=== PATIENT | female | born 1960 | race African-American/Black ===

== ENCOUNTER 2016-06-07 09:43 | Emergency (ER) | payer MEDICARE, MEDICAID ==
[2016-06-07] MEDS ORDERED: ASPIRIN 81 MG TABLET, CHEWABLE PO ONE (10:06)
[2016-06-07 11:21] LABS: ABSOLUTE BASOPHILS # (AUTO) 0.1 10^3/uL (0.0-0.2); ABSOLUTE EOSINOPHILS # (AUTO) 0.2 10^3/uL (0.0-0.6); ABSOLUTE LYMPHOCYTES (AUTO) 1.9 10^3/uL (0.5-4.7); ABSOLUTE MONOCYTES (AUTO) 0.4 10^3/uL (0.1-1.4); ABSOLUTE NEUT (AUTO) 4.9 10^3/uL (1.7-8.2); BASOPHILS % (AUTO) 0.8 % (0-2); EOSINOPHILS % (AUTO) 3.1 % (0-6); HEMATOCRIT 38.1 % (36.0-47.0); HEMOGLOBIN 12.8 g/dL (12.0-15.5); HGB HCT DIFFERENCE 0.3; LYMPHOCYTES % (AUTO) 25.4 % (13-45); MEAN CORPUSCULAR HEMOGLOBIN 29.2 pg (27.0-33.4); MEAN CORPUSCULAR HGB CONC 33.6 g/dL (32.0-36.0); MEAN CORPUSCULAR VOLUME 87 fl (80-97); MONOCYTES % (AUTO) 5.2 % (3-13); RED BLOOD COUNT 4.38 10^6/uL (3.72-5.28); RED CELL DISTRIBUTION WIDTH 15.2 % (11.5-14.0); SEGMENTED NEUTROPHILS % (AUTO) 65.5 % (42-78); WHITE BLOOD COUNT 7.4 10^3/uL (4.0-10.5)
[2016-06-07 11:36] LABS: ALANINE AMINOTRANSFERASE 25 U/L (9-52); ALBUMIN 3.9 g/dL (3.5-5.0); ALKALINE PHOSPHATASE 80 U/L (38-126); ANION GAP 13 (5-19); ASPARTATE AMINO TRANSFERASE 21 U/L (14-36); BILIRUBIN,TOTAL 0.4 mg/dL (0.2-1.3); BLOOD UREA NITROGEN 16 mg/dL (7-20); CALCIUM 9.2 mg/dL (8.4-10.2); CARBON DIOXIDE 28 mmol/L (22-30); CHLORIDE 99 mmol/L (98-107); CREATINE KINASE 121 U/L (30-135); CREATININE RESULT 0.69 mg/dL (0.52-1.25); GLUCOSE 175 mg/dL (75-110); POTASSIUM 3.8 mmol/L (3.6-5.0); SODIUM 139.7 mmol/L (137-145); TOTAL PROTEIN 7.4 g/dL (6.3-8.2)
--- NOTE | 2016-06-07 11:45 | ER Document Report ---
ED General - General Chief Complaint: Chest Pain Stated Complaint: CHEST PAIN Mode of Arrival: Ambulatory Information source: Patient Notes: Patient is a 55-year-old -[place] female presents with left upper arm pain has been present intermittently for the past 2 weeks. She states these episodes of arm pain last about 5 seconds and do not radiate to her jaw or to her chest. She states she also has intermittent midsternal chest pain that is nonradiating and nonreproducible. She describes the pain as throbbing. She states she has had pain similar to this and both her arm and chest for the past 3-4 years. She has been here and to see a [employer] inspector for this pain and was told that everything was fine. The last time she saw the [employer] inspector was over a year ago. She states she was at her primary care doctor's office this morning to have her thyroid checked and to restart some of her medications and they sent her over here to be evaluated for chest pain. She has a history of hypertension and diabetes but is only taking 1 antihypertensive medication. She is not currently having chest pain but endorses headache, nausea and lightheadedness. Denies changes in vision, diaphoresis, shortness of breath, vomiting or diarrhea. Cardiac risk factors: Personal history of diabetes and hypertension, family history of CAD/VA, nonsmoker, no alcohol, no IV drug use TRAVEL OUTSIDE OF THE [place] IN LAST 30 DAYS: No - Related Data Allergies/Adverse Reactions: No Known Allergies Allergy (Verified 06/07/16 10:04) Past Medical History - Social History Smoking Status: Unknown if Ever Smoked Chew tobacco use (# tins/day): No Frequency of alcohol use: None Drug Abuse: None Family History: Hypertension Patient has suicidal ideation: No Patient has homicidal ideation: No - Past Medical History Cardiac Medical History: Reports: Hx Hypertension Pulmonary Medical History: Denies: Hx Tuberculosis Neurological Medical History: Reports: Hx Migraine Renal/ Medical History: Denies: Hx Peritoneal Dialysis Musculoskeltal Medical History: Reports Hx Arthritis Psychiatric Medical History: Reports: Hx Depression Traumatic Medical History: Reports: Hx Fractures - L3L4 Past Surgical History: Reports: Hx Section, Hx Cholecystectomy - Immunizations Hx Diphtheria, Pertussis, Tetanus Vaccination: Yes Review of Systems - Review of Systems Constitutional: See HPI EENT: No symptoms reported Cardiovascular: See HPI Respiratory: See HPI Gastrointestinal: No symptoms reported Genitourinary: No symptoms reported Female Genitourinary: No symptoms reported Musculoskeletal: See HPI Skin: No symptoms reported Hematologic/Lymphatic: No symptoms reported Neurological/Psychological: No symptoms reported Physical Exam - Vital signs Vitals: Temp Pulse Resp BP Pulse Ox 97.8 F 75 20 125/75 98 06/07/16 10:05 06/07/16 10:05 06/07/16 10:05 06/07/16 10:05 06/07/16 10:05 Interpretation: Normal - Notes Notes: PHYSICAL EXAM: CONSTITUTIONAL: Alert and oriented, well-appearing and in no acute distress. Speaking in full sentences without difficulty. HENT: Normocephalic, atraumatic. Trachea midline. Uvula midline. Moist mucous membranes. EYES: Pupils equal round and reactive to light, EOM intact. Sclera anicteric, conjunctiva are normal. No entrapment. NECK: supple without lymphadenopathy. ROM intact. HEART: Regular rate and rhythm without murmurs. LUNGS: CTAB and equal. No wheezes, rales or rhonchi. GI: Normactive bowel sounds. Nontender, non-distended. No organomegaly. no CVAT. EXTREMITIES: Normal range of motion, no pitting edema. No cyanosis. Cap Refill < 3 seconds. NEURO: Cranial nerves grossly intact. Normal sensory/motor exams. PSYCH: Normal mood, normal affect. SKIN: Warm and dry. Normal turgor. No rashes or lesions noted. Course - Re-evaluation Re-evalutation: 06/07/16 11:45 Patient seen and examined. No active chest pain. She did receive 324 mg aspirin in triage. Positive cardiac risk factors so will get EKG and check lab work including troponin. Due to chronicity of pain low concern for active cardiac disease at this point. 06/07/16 12:27 Patient continues to remain chest pain free. Review of lab work reveal no abnormalities, initial troponin within normal limits. No acute findings on EKG. I have consulted with the supervisory physician per [facility] guidelines who is in agreement with assessment and plan. At this time, I do not feel this patient is having CAD or cardiac chest pain and is safe for discharge. Provided script for PPI for reflux. Advised to follow-up with PMD and z[employer] inspector. Discharged home in stable condition. - Vital Signs Vital signs: Temp Pulse Resp BP Pulse Ox 97.8 F 75 20 125/75 98 06/07/16 10:05 06/07/16 10:05 06/07/16 11:25 06/07/16 10:05 06/07/16 10:05 06/07/16 12:23 - Laboratory Result Diagrams: 06/07/16 10:25 06/07/16 10:25 Laboratory results interpreted by me: 06/07/16 06/07/16 10:25 10:25 RDW 15.2 H Glucose 175 H 06/07/16 12:25 Troponin within normal limits. - EKG Interpretation by Me EKG shows normal: Sinus rhythm Rate: Normal Rhythm: NSR When compared to previous EKG there are: Other - In comparison to EKG sent from primary care doctor's office, aVR and aVL on their EKG appear to be inverted due to lead placement. Confirmed with Dr. Stern. Discharge - Discharge Clinical Impression: Chronic pain of left upper extremity, Non-cardiac chest pain HTN (hypertension) Qualifiers: Hypertension type: essential hypertension Qualified Code(s): I10 - Essential ( primary) hypertension Condition: Stable Disposition: HOME, SELF-CARE Additional Instructions: CHEST PAIN OF UNCLEAR CAUSE: The exact cause of your chest pain isn't clear. Fortunately, there is no evidence of a dangerous medical condition. Further testing may be required to find the source of the pain. Most often, we find that this pain is coming from the chest wall -- the muscles or rib joints in the chest. But chest pain can come from the lung and lung lining, the esophagus, the heart valves or heart lining, and even the stomach or gallbladder. Rest. Eat lightly until the pain is gone. We may prescribe medicine for pain and inflammation. You should call the physician immediately if the pain radiates to the shoulder, jaw or arms; if you start to run a fever or develop a cough; or if you develop shortness of breath, or other new or alarming symptoms. NORMAL EXAM AND WORKUP: At this time, your examination and workup show no significant abnormality. No significant abnormal physical findings were noted. All laboratory, EKG, and imaging (x-ray, CT scans, ultrasound) studies that were ordered show no significant abnormality. Although your examination and all studies that were ordered showed no significant abnormal finding, there are no examinations and no studies that are 100% accurate. There is always the possibility that some abnormality could exist and not be detected with physical examination or within the limits and capabilities of laboratory and other studies. You should return or follow up as you were instructed on your visit today for further evaluation if your symptoms do not resolve. CHEST WALL PAIN: Your chest pain may be coming from the chest wall. This is often caused by straining the muscles or joints in the chest during physical activity, direct trauma, coughing, or vigorous vomiting. Persons with arthritis are especially prone to this type of pain, due to inflammation of the cartilage joints near the breast bone. Occasionally, no cause can be found. Rest from strenuous physical activity. This kind of chest pain is usually made worse by movement of the chest. Depending on the symptoms, we may prescribe medicine for pain, muscle relaxation, and antiinflammatory effects. If the pain is new, and seems to be due to muscle strain, cold packs can help. Otherwise, apply gentle warmth to the painful area for 15 minutes every hour or two. You should call contact the doctor immediately if things change. Further evaluation is needed if you develop a fever or cough, if the nature of the pain changes, or if you become short of breath. ACID REFLUX DISEASE (GERD): Gastro-Esophageal Reflux Disease (GERD) is caused by stomach acid refluxing back up into the esophagus. The valve at the end of the esophagus may be weak. This is common in persons with a hiatal hernia. GERD symptoms can include indigestion, chest pain, heartburn, or food "sticking." Certain foods, alcohol, and aspirin can make GERD worse. Treatment depends on the severity. Usually, antacids or acid-suppressing medicines are used. When the esophagus is acutely inflamed, the physician will often prescribe membrane-protective drugs such as Carafate. Some patients benefit from medication such as Reglan that tightens the valve at the top of the stomach. Avoid those foods that bring on your symptoms. For many people, these foods are coffee, chocolate, onions, garlic, and carbonated drinks. Don't use alcohol, aspirin, caffeine, or tobacco. Don't eat late at night -- within 4 hours of bedtime. Don't over-eat. If necessary, elevate the head of your bed about 4 inches so that stomach acid will not roll up into your esophagus. Call the doctor if you develop severe chest pain, inability to swallow fluids, fever, or worsening symptoms. ASPIRIN: Aspirin has been shown to have a beneficial effect on blood circulation by reducing the clotting effect of platelets in the blood. These beneficial effects can be achieved by taking just a single baby (81 mg) aspirin a day. It is recommended that any person over the age of forty take a single baby aspirin every day for heart and brain circulation, unless you are allergic to aspirin or have some significant bleeding disorder. It is strongly recommended that people who have proven cardiac or blood circulation disturbances should take a baby aspirin every day. ANTACID THERAPY: You have been instructed to start antacid therapy. Antacids directly neutralize stomach acid. This is useful for acid irritation of the esophagus, gastritis, and ulcers. You should take two tablespoons of antacid one hour after each meal and three hours after each meal. If you are not eating, take the antacid every two hours. If you are using a concentrate (such as Maalox TC), use only one tablespoon. Many antacids affect the bowels. The most common problem is diarrhea. In this case, a pure aluminum hydroxide antacid (such as AlternaGel) can be substituted for some or all doses. If the problem is constipation, add a teaspoon of Milk of Magnesia to each dose. Call the doctor if you experience continued diarrhea or constipation, or if you develop lightheadedness, bloody stool or vomitus, severe abdominal pain, or black stool. PRILOSEC (ACID PUMP INHIBITOR): Prilosec (omeprazole) is an acid-pump inhibitor. It blocks the secretion of hydrogen ions in the acid-producing cells of the stomach. Prilosec keeps your stomach from making acid. Take all medication as prescribed, even after the pain is gone. Regular antacids may be added as needed if you have symptoms while taking this medicine. There are usually no side effects from this medication. Contact your doctor if there is fever, rash, yellow skin color, increasing abdominal pain, weakness, or unusual bruising. Return at once if you develop lightheadedness, black or bloody stool, or bloody vomitus. FOLLOW-UP CARE: If you have been referred to a physician for follow-up care, call the physician s office for an appointment as you were instructed or within the next two days. If you experience worsening or a significant change in your symptoms, notify the physician immediately or return to the Emergency Department at any time for re-evaluation. Prescriptions: Omeprazole 20 mg PO DAILY #30 tablet.dr Referrals: WERNER DRAPER MD [Primary Care Provider] - Follow up in 3-5 days (To evaluate for thyroid and diabetes) PATRIC STOUT MD [ACTIVE STAFF] - Follow up in 1 week (call to schedule yearly follow-up appointment)
[2016-06-07 11:46] LABS: CREATINE KINASE MB 2.36 ng/mL (<4.55)
[2016-06-07 11:47] LABS: TROPONIN I < 0.012 ng/mL
--- NOTE | 2016-06-07 12:18 | ER Document Report ---
Doctor's Note Notes: 06/07/16 12:16 Consulted by [facility] regarding this patient. I then evaluated the patient. She says that she's been having this chest pain into her arm for a couple of years. She went to her doctor today for another reason, lab tests for her thyroid, etc., and they did an EKG in his office. The EKG does not show any acute changes. In fact, I'm pretty sure that leads aVR and aVL are switched on that office EKG. The morphology of the 2 leads are just the opposite on our EKG here. Our EKG does not show any changes that concern me for cardiac disease. Her cardiac labs are all negative. I believe we can send the patient home for follow-up with her doctor. Salvador Stern M.D.
[2016-06-07 12:34] VITALS: BP 125/77
--- NOTE | 2016-06-07 18:15 | EKG REPORT ---
SEVERITY:- ABNORMAL ECG - SINUS RHYTHM IVETH, CONSIDER BIATRIAL ABNORMALITIES LEFT VENTRICULAR HYPERTROPHY BORDERLINE T ABNORMALITIES, INFERIOR LEADS BORDERLINE PROLONGED QT INTERVAL : Confirmed by: Mahamed Cheema MD 07-Jun-2016 18:14:46
== END 2016-06-07 12:38 | disposition home or self-care (01) ==
LOC: ER 09:43
DX: R07.89 Other chest pain (principal); M79.622 Pain in left upper arm; G89.29 Other chronic pain; I10 Essential (primary) hypertension; E11.9 Type 2 diabetes mellitus without complications; R51 Headache; R11.0 Nausea; R42 Dizziness and giddiness; Z79.899 Other long term (current) drug therapy; Z82.49 Family history of ischemic heart disease and other diseases of the circulatory system
CPT/HCPCS: 36415; 71010; 80053; 82550; 82553; 84484; 85025; 93005; 93010; 99285

== ENCOUNTER 2016-11-30 08:56 | Outpatient (CLI) | payer MEDICARE, MEDICAID ==
[~2016-11-30 08:56] MED LIST: FERRIC CARBOXYMALTOSE 750 MG in NORMAL SALINE 250 ML IV PRN; NORMAL SALINE 250 ML IV PRN
[2016-11-30 10:13] VITALS: BP 146/70
== END 2016-11-30 11:49 | disposition home or self-care (01) ==
LOC: II 08:56 → 5TH 08:58 → II 11:49
PROVIDERS: ATTEND Internal Medicine
PROC: 3E033GC Introduction of Other Therapeutic Substance into Peripheral Vein, Percutaneous Approach (ICD-10-PCS; principal; 2016-11-30)
DX: D50.8 Other iron deficiency anemias (principal); K90.9 Intestinal malabsorption, unspecified
CPT/HCPCS: 96365; J7050; J1439

== ENCOUNTER 2016-12-07 08:54 | Outpatient (CLI) | payer MEDICARE, MEDICAID ==
[2016-12-07 10:20] VITALS: BP 116/77
== END 2016-12-07 10:34 | disposition home or self-care (01) ==
LOC: II 08:54 → 5TH 08:57 → II 10:34
PROVIDERS: ATTEND Internal Medicine
PROC: 3E033GC Introduction of Other Therapeutic Substance into Peripheral Vein, Percutaneous Approach (ICD-10-PCS; principal; 2016-12-07)
DX: D50.8 Other iron deficiency anemias (principal); K90.9 Intestinal malabsorption, unspecified
CPT/HCPCS: 96367; J7050; J1439; 96365

== ENCOUNTER 2017-08-03 11:56 | Emergency (ER) | payer MEDICARE, MEDICAID ==
--- NOTE | 2017-08-03 12:50 | RADIOLOGY REPORT (SQ) ---
EXAM DESCRIPTION: L SPINE WHOLE COMPLETED DATE/TIME: 08/03/2017 12:37 pm REASON FOR STUDY: FALL, PAIN COMPARISON: None. NUMBER OF VIEWS: Five views including obliques. TECHNIQUE: AP, lateral, oblique, and sacral radiographic images acquired of the lumbar spine. LIMITATIONS: None. FINDINGS: MINERALIZATION: Normal. SEGMENTATION: Normal. No transitional anatomy. ALIGNMENT: Mild levoscoliosis centered at L2. VERTEBRAE: Maintained height. No fracture or worrisome bone lesion. DISCS: Disc spaces are well maintained. There are some small marginal osteophytes scattered through the lumbar spine. POSTERIOR ELEMENTS: Mild hypertrophic facet changes from L2-S1. HARDWARE: None in the spine. PARASPINAL SOFT TISSUES: Normal. PELVIS: There is mild sclerosis of the inferior left sacroiliac joint. OTHER: No other significant finding. IMPRESSION: 1. Mild scoliosis with mild spondylosis and facet arthropathy. 2. Left sacroiliitis. TECHNICAL DOCUMENTATION: JOB ID: [id number] [employer]- All Rights Reserved Reading location - IP/workstation name: [email or web address]
--- NOTE | 2017-08-03 12:51 | RADIOLOGY REPORT (SQ) ---
EXAM DESCRIPTION: SACRUM AND COCCYX COMPLETED DATE/TIME: 08/03/2017 12:38 pm REASON FOR STUDY: FALL, PAIN COMPARISON: None. NUMBER OF VIEWS: Three views. TECHNIQUE: AP, lateral, and tilt views of the sacrum and coccyx. LIMITATIONS: None. FINDINGS: MINERALIZATION: Normal. BONES: No acute fracture or dislocation. No worrisome bone lesions. SOFT TISSUES: No soft tissue swelling. No foreign body. OTHER: Mild left sacroiliitis suggested. IMPRESSION: Left sacroiliitis with no acute abnormality of the sacrum and coccyx. TECHNICAL DOCUMENTATION: JOB ID: [id number] [employer]- All Rights Reserved Reading location - IP/workstation name: [email or web address]
[2017-08-03] MEDS ORDERED: KETOROLAC TROMETHAMINE INJ/PF 30 MG/1 ML SDV IM ONE (13:08)
--- NOTE | 2017-08-03 13:14 | ER Document Report ---
ED Neck/Back Problem - General Chief Complaint: Back Injury Stated Complaint: FALL/TAILBONE PAIN Time Seen by Provider: 08/03/17 12:06 Mode of Arrival: Ambulatory Information source: Patient TRAVEL OUTSIDE OF THE [place] IN LAST 30 DAYS: No - HPI Patient complains to provider of: Pain, Injury, Lower back Notes: Patient is here with complaints of low back pain. She states that she was sitting on her wheeled walker when it rolled down the driveway and collapsed causing her to fall onto her buttocks and then hit her head. She is on no blood thinning medications. She denies any loss of consciousness. She does complain of a mild headache. She denies any blurred or loss vision. She denies any numbness, tingling, weakness. She denies any nausea, vomiting, diarrhea. She denies any posterior neck pain. She is complaining of pain in her lower back and tailbone area. She denies any other injuries. She denies any bowel or bladder dysfunction. No fever. No other complaints. - Related Data Allergies/Adverse Reactions: No Known Allergies Allergy (Verified 06/07/16 10:04) Past Medical History - Social History Smoking Status: Never Smoker Chew tobacco use (# tins/day): No Frequency of alcohol use: None Drug Abuse: None Family History: Hypertension Patient has suicidal ideation: No Patient has homicidal ideation: No - Past Medical History Cardiac Medical History: Reports: Hx Hypertension Pulmonary Medical History: Denies: Hx Tuberculosis Neurological Medical History: Reports: Hx Migraine Renal/ Medical History: Denies: Hx Peritoneal Dialysis Musculoskeltal Medical History: Reports Hx Arthritis Psychiatric Medical History: Reports: Hx Depression Traumatic Medical History: Reports: Hx Fractures - L3L4 Past Surgical History: Reports: Hx Section, Hx Cholecystectomy - Immunizations Hx Diphtheria, Pertussis, Tetanus Vaccination: Yes Review of Systems - Review of Systems -: Yes All other systems reviewed and negative Physical Exam - Vital signs Vitals: Temp Pulse Resp BP Pulse Ox 98.7 F 94 20 121/86 H 97 08/03/17 12:02 08/03/17 12:02 08/03/17 12:02 08/03/17 12:02 08/03/17 12:02 - Notes Notes: GENERAL: alert, cooperative, nontoxic, no distress. HEAD: normocephalic, atraumatic EYES: conjunctiva pink without discharge, no external redness or swelling. PERRL , EOM'S INTACT EARS: no external swelling, no external redness. No hemotympanum EM NOSE: atraumatic, no external swelling. No bleeding MOUTH/THROAT: mucous membranes moist and pink, posterior pharynx without erythema, swelling, exudate. No trismus or drooling. NECK: soft, supple, full range of motion, no meningismus. No midline tenderness step-offs or crepitus to palpation of the cervical spine. CHEST: no distress, lungs clear and equal throughout. No wheezing, rales, rhonchi. CARDIAC: regular rate and rhythm, no murmur, normal capillary refill, normal pulses. No peripheral edema noted. ABDOMEN: Soft, nontender. No ecchymosis. BACK: no CVA tenderness. Tenderness to palpation of the lumbar spine as well as the sacrum. No step-offs or crepitus. Slightly limited range of motion of the lower back secondary to pain. EXTREMITIES: full range of motion of all extremities. No redness, no swelling. NEURO: alert and oriented x 3, no focal deficits, full range of motion of all extremities. Cranial nerves II through XII are grossly intact. Reflexes are normal bilaterally. Normal sensation bilaterally. Normal strength bilaterally. No saddle anesthesia PYSCH: appropriate mood, affect. Patient is cooperative. SKIN: pink, warm, dry, no rash. Course - Re-evaluation Re-evalutation: 08/03/17 13:11 Patient is nontoxic appearing with stable vitals. The patient states that she was sitting on her wheeled walker when it rolled down the driveway and she fell onto her buttocks and hit her head. She is on no blood thinners. She denies loss of consciousness. She does complain of a mild headache. She has no other concussive type symptoms. She has a completely normal neurological exam at this time. She has no midline tenderness to her cervical spine. This point do not believe the patient requires a head CT. We discussed the risks and benefits of head CT, the patient states she has had multiple CTs in the past and she would prefer to not have the radiation exposure at this time. X-rays of the lumbar spine as well as sacrum and coccyx show sacroiliitis on the left with no acute findings. Patient has no sign of cauda equina, epidural abscess/ bleed, discitis, osteomyelitis, AAA, pyelonephritis. Remainder of her exam is unremarkable. The patient states she has tramadol that she can take at home for pain. She will be given a shot of Toradol here in emergency department will be prescribed Naprosyn to take as needed for aches and pains. She can continue taking her Ultram as needed. Follow-up if she has not better in 1 week , sooner for worsening pain, fever, numbness, tingling, weakness, bowel or bladder dysfunction, persistent vomiting, severe headache, or for any further concerns. The patient is noted to have elevated blood pressure during today's emergency department visit. The patient was informed of this finding. The patient was instructed that this may be related to pre-hypertension and requires further evaluation with a primary care provider. The patient has no hypertensive symptoms at this time. The patient's emergency department workup and current diagnosis were explained to the patient and or family. Follow-up instructions were provided. Medications if prescribed were discussed. Instructions for when to return to the emergency department including specific worrisome symptoms were discussed with the patient and/or family. - Vital Signs Vital signs: Temp Pulse Resp BP Pulse Ox 98.7 F 94 20 121/86 H 97 08/03/17 12:02 08/03/17 12:02 08/03/17 12:02 08/03/17 12:08/03/17 12:02 - Diagnostic Test Radiology reviewed: Image reviewed, Reports reviewed - X-rays of the lumbar spine as well as sacrum and coccyx show no acute fractures with left-sided sacroiliitis. Discharge - Discharge Clinical Impression: Lumbar strain Qualifiers: Encounter type: initial encounter Qualified Code(s): S39.012A - Strain of muscle, fascia and tendon of lower back, initial encounter Minor head injury Qualifiers: Encounter type: initial encounter Qualified Code(s): S09.90XA - Unspecified injury of head, initial encounter Condition: Stable Disposition: HOME, SELF-CARE Instructions: Low Back Pain ([facility]), Head Injury Precautions ([facility]) Additional Instructions: Take medications as prescribed. You may also take your tramadol as needed for pain. Follow-up with your doctor if not better in 1 week, follow-up sooner for worsening pain, fever, severe headache, blurred or loss vision, numbness, tingling, weakness, slurred speech, persistent vomiting, difficulty controlling her bowels or bladder, or for any further concerns. Your blood pressure was elevated during today's visit. Have this rechecked with your doctor. Prescriptions: Naproxen [Naprosyn] 500 mg PO BID #20 tablet Forms: Elevated Blood Pressure Referrals: WERNER DRAPER MD [Primary Care Provider] - Follow up as needed
[2017-08-03 13:24] VITALS: BP 115/83
[2017-08-03] MEDS ORDERED: LIDOCAINE 5% (700 MG) TRANSDERMAL ADH..PATCH TP ONE (13:31)
== END 2017-08-03 13:35 | disposition home or self-care (01) ==
LOC: ER 11:56
DX: S39.012A Strain of muscle, fascia and tendon of lower back, initial encounter (principal); S09.90XA Unspecified injury of head, initial encounter; R51 Headache; I10 Essential (primary) hypertension; W17.89XA Other fall from one level to another, initial encounter
CPT/HCPCS: 99283; 72220; 72110; J1885

== ENCOUNTER 2017-11-08 14:15 | Emergency (ER) | payer MEDICARE, MEDICAID ==
[2017-11-08] MEDS ORDERED: RINGERS SOLUTION,LACTATED 1,000 ML IV PRN (14:58)
[2017-11-08] MEDS ORDERED: KETOROLAC TROMETHAMINE INJ/PF 30 MG/1 ML SDV IV ONE (14:58)
[2017-11-08] MEDS ORDERED: PROCHLORPERAZINE EDISYLATE INJ 10 MG/2 ML VIAL IM ONE (14:58)
[2017-11-08] MEDS ORDERED: DIPHENHYDRAMINE HCL 50 MG/ML VIAL IV ONE (14:58)
--- NOTE | 2017-11-08 15:33 | ER Document Report ---
ED Medical Screen (RME) - General Chief Complaint: Headache Stated Complaint: NUMBNESS AND COLDNESS IN HANDS Time Seen by Provider: 11/08/17 14:46 Mode of Arrival: Ambulatory Information source: Patient TRAVEL OUTSIDE OF THE [place] IN LAST 30 DAYS: No - HPI Notes: 11/08/17 15:28 57-year-old female with a medical history of headaches, type 2 diabetes, hypertension, hyperlipidemia presents with complaints of a headache with numbness in bilateral hands that started today, has been episodic over the last several months. Denies any fevers or chills. States headache is left frontal, denies any photophobia or phonophobia. Pain is 7 out of 10, sharp, denies any nausea vomiting, blurred vision, double vision, loss of vision, neck stiffness, trismus, chest pain or shortness of breath but does state she has intermittent dizziness. Patient states she had this prior, needed a blood transfusion however she did this outpatient. Denies any new medications, travel or new foods. Has been taking her Metformin, Lipitor gabapentin and tramadol as directed has been on these medications for several years. Denies any trauma to head, change in level of consciousness or neuro changes. Patient states this headache is not the worst headache of her life and she has had worse headaches. I have greeted and performed a rapid initial assessment of this patient. A comprehensive ED assessment and evaluation of the patient, analysis of test results and completion of medical decision making process will be conducted by an additional ED providers. - Related Data Allergies/Adverse Reactions: No Known Allergies Allergy (Verified 11/08/17 14:16) Past Medical History - Past Medical History Cardiac Medical History: Reports: Hx Hypertension Pulmonary Medical History: Denies: Hx Tuberculosis Neurological Medical History: Reports: Hx Migraine Renal/ Medical History: Denies: Hx Peritoneal Dialysis Musculoskeltal Medical History: Reports Hx Arthritis Psychiatric Medical History: Reports: Hx Depression Traumatic Medical History: Reports: Hx Fractures - L3L4 Past Surgical History: Reports: Hx Section, Hx Cholecystectomy - Immunizations Hx Diphtheria, Pertussis, Tetanus Vaccination: Yes Physical Exam - Vital signs Vitals: Temp Pulse Resp BP Pulse Ox 98.9 F 67 16 135/80 H 97 11/08/17 14:19 11/08/17 14:19 11/08/17 14:19 11/08/17 14:19 11/08/17 14:19 - Respiratory Respiratory status: No respiratory distress Chest status: Nontender Breath sounds: Normal Chest palpation: Normal - discharge any patient - Cardiovascular Rhythm: Regular Heart sounds: Normal auscultation Murmur: Yes Normal capillary refill: Yes - Neurological Neuro grossly intact: Yes Cognition: Normal Orientation: AAOx4 Sharon Coma Scale Verbal: Oriented Sharon Coma Scale Motor: Obeys Commands Speech: Normal Motor strength normal: LUE, RUE, LLE, RLE Course - Vital Signs Vital signs: Temp Pulse Resp BP Pulse Ox 98.9 F 67 16 135/80 H 97 11/08/17 14:19 11/08/17 14:19 11/08/17 14:19 11/08/17 14:19 11/08/17 14:19 Doctor's Discharge - Discharge Referrals: WERNER DRAPER MD [Primary Care Provider] - Follow up as needed
--- NOTE | 2017-11-08 15:37 | RADIOLOGY REPORT (SQ) ---
EXAM DESCRIPTION: CHEST SINGLE VIEW COMPLETED DATE/TIME: 11/08/2017 3:17 pm REASON FOR STUDY: dizziness with LOYD COMPARISON: 06/07/2016 EXAM PARAMETERS: NUMBER OF VIEWS: One view. TECHNIQUE: Single frontal radiographic view of the chest acquired. RADIATION DOSE: NA LIMITATIONS: None. FINDINGS: LUNGS AND PLEURA: No opacities, masses or pneumothorax. No pleural effusion. MEDIASTINUM AND HILAR STRUCTURES: No masses. Contour normal. HEART AND VASCULAR STRUCTURES: Heart normal in size. Normal vasculature. BONES: No acute findings. HARDWARE: None in the chest. OTHER: No other significant finding. IMPRESSION: NO ACUTE RADIOGRAPHIC FINDING IN THE CHEST. TECHNICAL DOCUMENTATION: JOB ID: [id number] [employer]- All Rights Reserved Reading location - IP/workstation name: [email or web address]
[2017-11-08 16:00] LABS: ABSOLUTE EOSINOPHILS # (AUTO) 0.2 10^3/uL (0.0-0.6); ABSOLUTE LYMPHOCYTES (AUTO) 1.8 10^3/uL (0.5-4.7); ABSOLUTE MONOCYTES (AUTO) 0.4 10^3/uL (0.1-1.4); ABSOLUTE NEUT (AUTO) 5.4 10^3/uL (1.7-8.2); BASOPHILS % (AUTO) 0.6 % (0-2); EOSINOPHILS % (AUTO) 2.4 % (0-6); HEMATOCRIT 40.2 % (36.0-47.0); HEMOGLOBIN 13.5 g/dL (12.0-15.5); LYMPHOCYTES % (AUTO) 23.2 % (13-45); MEAN CORPUSCULAR HGB CONC 33.6 g/dL (32.0-36.0); MEAN CORPUSCULAR VOLUME 89 fl (80-97); MONOCYTES % (AUTO) 5.5 % (3-13); PLATELET COUNT 359 10^3/uL (150-450); RED BLOOD COUNT 4.51 10^6/uL (3.72-5.28); SEGMENTED NEUTROPHILS % (AUTO) 68.3 % (42-78); TOTAL CELLS COUNTED % (AUTO) 100 %; WHITE BLOOD COUNT 7.9 10^3/uL (4.0-10.5)
[2017-11-08 16:21] LABS: ALANINE AMINOTRANSFERASE 24 U/L (9-52); ALBUMIN 3.8 g/dL (3.5-5.0); ALKALINE PHOSPHATASE 65 U/L (38-126); ANION GAP 12 (5-19); ASPARTATE AMINO TRANSFERASE 24 U/L (14-36); BILIRUBIN,DIRECT 0.3 mg/dL (0.0-0.4); BILIRUBIN,TOTAL 0.4 mg/dL (0.2-1.3); BLOOD UREA NITROGEN 13 mg/dL (7-20); C-REACTIVE PROTEIN 30.1 mg/L (<10.0); CALCIUM 9.3 mg/dL (8.4-10.2); CARBON DIOXIDE 28 mmol/L (22-30); CHLORIDE 102 mmol/L (98-107); CREATINE KINASE 158 U/L (30-135); GLUCOSE 130 mg/dL (75-110); POTASSIUM 3.9 mmol/L (3.6-5.0); SODIUM 142.3 mmol/L (137-145); TOTAL PROTEIN 7.5 g/dL (6.3-8.2)
[2017-11-08 16:30] LABS: CREATINE KINASE MB 1.82 ng/mL (<4.55)
[2017-11-08 16:31] LABS: TROPONIN I < 0.012 ng/mL
[2017-11-08 19:24] LABS: APPEARANCE,URINE CLEAR; BILIRUBIN,URINE NEGATIVE (NEGATIVE); COLOR,URINE YELLOW; GLUCOSE, URINE NEGATIVE (NEGATIVE); KETONES,URINE NEGATIVE (NEGATIVE); LEUKOCYTE ESTERASE,URINE NEGATIVE (NEGATIVE); NITRITE,URINE NEGATIVE (NEGATIVE); PROTEIN,URINE NEGATIVE (NEGATIVE); URINE SPECIFIC GRAVITY 1.015; UROBILINOGEN,URINE NEGATIVE mg/dL (<2.0)
--- NOTE | 2017-11-08 19:26 | ER Document Report ---
ED General - General Chief Complaint: Headache Stated Complaint: NUMBNESS AND COLDNESS IN HANDS Time Seen by Provider: 11/08/17 14:46 Mode of Arrival: Ambulatory Notes: This is a 57-year-old female to emergency department chief complaint of my hands are cold. States that she began to have some tingling to her hands and face. States that this is happened before. Denies any fever. Did feel chills. No sweats. No chest pain, shortness of breath, blurred vision, headache or other issues at this time. Patient does state she has chronic pain but that nothing is worse than usual. TRAVEL OUTSIDE OF THE [place] IN LAST 30 DAYS: No - HPI Onset: Just prior to arrival Onset/Duration: Gone Quality of pain: No pain Severity: Mild Pain Level: 0 Associated symptoms: Weakness, Other - Tingling of her hands Exacerbated by: Denies - Related Data Allergies/Adverse Reactions: No Known Allergies Allergy (Verified 11/08/17 14:16) Past Medical History - General Information source: Patient - Social History Smoking Status: Never Smoker Cigarette use (# per day): No Frequency of alcohol use: None Drug Abuse: None Lives with: Family Family History: Hypertension Patient has suicidal ideation: No Patient has homicidal ideation: No - Past Medical History Cardiac Medical History: Reports: Hx Hypertension Pulmonary Medical History: Denies: Hx Tuberculosis Neurological Medical History: Reports: Hx Migraine Renal/ Medical History: Denies: Hx Peritoneal Dialysis Musculoskeletal Medical History: Reports Hx Arthritis Psychiatric Medical History: Reports: Hx Depression Traumatic Medical History: Reports: Hx Fractures - L3L4 Past Surgical History: Reports: Hx Section, Hx Cholecystectomy - Immunizations Hx Diphtheria, Pertussis, Tetanus Vaccination: Yes Review of Systems - Review of Systems Constitutional: denies: Fever, Malaise, Weakness EENT: denies: Blurred vision, Difficulty swallowing, Mouth pain Cardiovascular: denies: Chest pain, Dyspnea, Edema Respiratory: denies: Cough, Hurts to breathe, Short of breath, Wheezing Gastrointestinal: denies: Abdominal pain, Diarrhea, Nausea, Vomiting Genitourinary: denies: Burning, Dysuria, Discharge Musculoskeletal: denies: Back pain, Muscle pain, Leg swelling Skin: denies: Dryness, Lesions, Lumps, Rash Hematologic/Lymphatic: denies: Blood clots, Easy bleeding, Easy bruising Neurological/Psychological: Weakness, Numbness, Tingling. denies: Confusion Physical Exam - Vital signs Vitals: Temp Pulse Resp BP Pulse Ox 98.9 F 67 16 135/80 H 97 11/08/17 14:19 11/08/17 14:19 11/08/17 14:19 11/08/17 14:19 11/08/17 14:19 Interpretation: Normal - General General appearance: Appears well, Alert - HEENT Head: Normocephalic, Atraumatic Eyes: Normal Pupils: PERRL - Respiratory Respiratory status: No respiratory distress Chest status: Nontender Breath sounds: Normal Chest palpation: Normal - Cardiovascular Rhythm: Regular Heart sounds: Normal auscultation Murmur: No - Abdominal Inspection: Normal Distension: No distension Bowel sounds: Normal Tenderness: Nontender Organomegaly: No organomegaly - Back Back: Normal, Nontender - Extremities General upper extremity: Normal inspection, Nontender, Normal color, Normal ROM , Normal temperature General lower extremity: Normal inspection, Nontender, Normal color, Normal ROM , Normal temperature, Normal weight bearing. 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 Labs are completely normal. EKG unchanged from prior. Chest x-ray unremarkable. At this time felt very comfortable discharging her. 11/08/17 19:25 Laboratory 11/08/17 11/08/17 11/08/17 15:44 15:44 15:44 WBC 7.9 RBC 4.51 Hgb 13.5 Hct 40.2 MCV 89 MCH 30.0 MCHC 33.6 RDW 14.0 Plt Count 359 Seg Neutrophils % 68.3 Lymphocytes % 23.2 Monocytes % 5.5 Eosinophils % 2.4 Basophils % 0.6 Absolute Neutrophils 5.4 Absolute Lymphocytes 1.8 Absolute Monocytes 0.4 Absolute Eosinophils 0.2 Absolute Basophils 0.0 Sodium 142.3 Potassium 3.9 Chloride 102 Carbon Dioxide 28 Anion Gap 12 BUN 13 Creatinine 0.68 Est GFR ( Amer) > 60 Est GFR (Non-Af Amer) > 60 Glucose 130 H Calcium 9.3 Total Bilirubin 0.4 Direct Bilirubin 0.3 Neonat Total Bilirubin Not Reportable Neonat Direct Bilirubin Not Reportable Neonat Indirect Bili Not Reportable AST 24 ALT 24 Alkaline Phosphatase 65 Creatine Kinase 158 H CK-MB (CK-2) 1.82 Troponin I < 0.012 C-Reactive Protein 30.1 H Total Protein 7.5 Albumin 3.8 Urine Color Urine Appearance Urine pH Ur Specific Gravette Urine Protein Urine Glucose (UA) Urine Ketones Urine Blood Urine Nitrite Urine Bilirubin Urine Urobilinogen Ur Leukocyte Esterase Urine WBC (Auto) Urine RBC (Auto) U Hyaline Cast (Auto) Squamous Epi Cells Auto Urine Mucus (Auto) Urine Ascorbic Acid 11/08/17 18:50 WBC RBC Hgb Hct MCV MCH MCHC RDW Plt Count Seg Neutrophils % Lymphocytes % Monocytes % Eosinophils % Basophils % Absolute Neutrophils Absolute Lymphocytes Absolute Monocytes Absolute Eosinophils Absolute Basophils Sodium Potassium Chloride Carbon Dioxide Anion Gap BUN Creatinine Est GFR ( Amer) Est GFR (Non-Af Amer) Glucose Calcium Total Bilirubin Direct Bilirubin Neonat Total Bilirubin Neonat Direct Bilirubin Neonat Indirect Bili AST ALT Alkaline Phosphatase Creatine Kinase CK-MB (CK-2) Troponin I C-Reactive Protein Total Protein Albumin Urine Color YELLOW Urine Appearance CLEAR Urine pH 5.0 Ur Specific Gravette 1.015 Urine Protein NEGATIVE Urine Glucose (UA) NEGATIVE Urine Ketones NEGATIVE Urine Blood NEGATIVE Urine Nitrite NEGATIVE Urine Bilirubin NEGATIVE Urine Urobilinogen NEGATIVE Ur Leukocyte Esterase NEGATIVE Urine WBC (Auto) 1 Urine RBC (Auto) 0 U Hyaline Cast (Auto) 3 Squamous Epi Cells Auto <1 Urine Mucus (Auto) RARE Urine Ascorbic Acid NEGATIVE - Vital Signs Vital signs: Temp Pulse Resp BP Pulse Ox 98.9 F 67 16 135/80 H 97 11/08/17 14:19 11/08/17 14:19 11/08/17 14:19 11/08/17 14:19 11/08/17 14:19 - Laboratory Result Diagrams: 11/08/17 15:44 11/08/17 15:44 Laboratory results interpreted by me: 11/08/17 15:44 Glucose 130 H Creatine Kinase 158 H C-Reactive Protein 30.1 H - EKG Interpretation by Me EKG shows normal: Sinus rhythm, [place], Intervals, QRS Complexes, ST-T Waves Rhythm: PVC's When compared to previous EKG there are: No significant change Discharge - Discharge Clinical Impression: Paresthesias/numbness Condition: Good Disposition: HOME, SELF-CARE Instructions: Numbness or Paresthesia ([facility]) Additional Instructions: Please follow-up with your regular doctor. If symptoms return please get a repeat evaluation done. Today everything looks fairly unremarkable. Referrals: WERNER DRAPER MD [Primary Care Provider] - Follow up as needed
[2017-11-08 19:38] VITALS: BP 119/85
--- NOTE | 2017-11-08 21:21 | EKG REPORT ---
SEVERITY:- ABNORMAL ECG - SINUS RHYTHM VENTRICULAR TRIGEMINY PROBABLE LEFT ATRIAL ABNORMALITY LEFT VENTRICULAR HYPERTROPHY BORDERLINE T ABNORMALITIES, INFERIOR LEADS : Confirmed by: Nataliya Martel 08-Nov-2017 21:20:36
== END 2017-11-08 19:38 | disposition home or self-care (01) ==
LOC: ER 14:15
DX: R20.0 Anesthesia of skin (principal); R20.2 Paresthesia of skin; R53.1 Weakness; I49.3 Ventricular premature depolarization; G89.29 Other chronic pain; I10 Essential (primary) hypertension
CPT/HCPCS: 93005; 99284; 96372; 96375; 96365; 96366; 36415; 82553; 82550; 85025; 86140; 80053; 81001; 84484; 71045; 93010; J1200; J1885; J0780; J7120

== ENCOUNTER 2018-01-10 09:55 | Emergency (ER) | payer OTHER, MEDICARE, MEDICAID ==
[2018-01-10] MEDS ORDERED: DEXAMETHASONE SOD PHOS INJ 10 MG/1 ML VIAL IM ONE (11:30)
[2018-01-10] MEDS ORDERED: KETOROLAC TROMETHAMINE INJ/PF 30 MG/1 ML SDV IM ONE (11:30)
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
[2018-01-10 11:46] VITALS: BP 104/80
== END 2018-01-10 12:00 | disposition home or self-care (01) ==
LOC: ER 09:55
DX: M25.512 Pain in left shoulder (principal); V49.40XA Driver injured in collision with unspecified motor vehicles in traffic accident, initial encounter; M54.9 Dorsalgia, unspecified; M54.2 Cervicalgia; I10 Essential (primary) hypertension; E11.9 Type 2 diabetes mellitus without complications; Z87.81 Personal history of (healed) traumatic fracture
CPT/HCPCS: 99283; 96372; J1885; J1100

== ENCOUNTER 2018-10-10 18:47 | Emergency (ER) | payer MEDICARE, MEDICAID ==
[2018-10-10 19:06] VITALS: BP 150/86
--- NOTE | 2018-10-10 19:23 | ER Document Report ---
ED Medical Screen (RME) - General Chief Complaint: Vomiting/Diarrhea Stated Complaint: DIARRHEA Time Seen by Provider: 10/10/18 18:59 Primary Care Provider: WERNER DRAPER MD [Primary Care Provider] - Follow up as needed Mode of Arrival: Ambulatory Information source: Patient TRAVEL OUTSIDE OF THE [place] 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 Denies any fevers or chills. Worse with time, nothing makes better. Denies any melena, black tarry stools. Has not tried any [id number] medications. Denies any chest pain, shortness of breath, lightheadedness, dizziness, blurred vision double vision loss of vision, bowel or bladder dysfunction, saddle anesthesia, no numbness or tingling bilateral lower extremities equally ROS: Other than noted above, the 12 point review of systems was reviewed with the patient and were negative, all pertinent findings are included in the HPI. PHYSICAL EXAMINATION: Vital signs reviewed. GENERAL: Well-appearing, well-nourished and in no acute distress. HEAD: Atraumatic, normocephalic. NECK: Normal range of motion CV: Heart regular rate and rhythm LUNGS: No respiratory distress ABD: LUQ abd pain on palpation, no cva tenderness bilaterally Musculoskeletal: Normal range of motion NEUROLOGICAL: Normal speech PSYCH: Normal mood, normal affect. MDM: Patient seen and examined for rapid initial assessment. Vital signs reviewed. A comprehensive ED assessment and evaluation of the patient, analysis of test results and completion of the medical decision making process will be conducted by additional ED providers. *Note is created using voice recognition software and may contain spelling, syntax or grammatical errors. - Related Data Allergies/Adverse Reactions: No Known Allergies Allergy (Verified 10/10/18 18:47) Past Medical History - Past Medical History Cardiac Medical History: Reports: Hx Hypertension Pulmonary Medical History: Denies: Hx Tuberculosis Neurological Medical History: Reports: Hx Migraine Endocrine Medical History: Reports: Hx Diabetes Mellitus Type 2 Renal/ Medical History: Denies: Hx Peritoneal Dialysis Musculoskeltal Medical History: Reports Hx Arthritis, Reports Hx Musculoskeletal Deformity, Reports Hx Musculoskeletal Trauma Psychiatric Medical History: Reports: Hx Depression Traumatic Medical History: Reports: Hx Fractures - L3L4 Past Surgical History: Reports: Hx Section, Hx Cholecystectomy - Immunizations Immunizations up to date: Yes Hx Diphtheria, Pertussis, Tetanus Vaccination: Yes Physical Exam - Vital signs Vitals: Temp Pulse Resp BP Pulse Ox 99.1 F 83 20 150/86 H 97 10/10/18 19:05 10/10/18 19:05 10/10/18 19:05 10/10/18 19:05 10/10/18 19:05 Course - Vital Signs Vital signs: Temp Pulse Resp BP Pulse Ox 99.1 F 83 20 150/86 H 97 10/10/18 19:05 10/10/18 19:05 10/10/18 19:05 10/10/18 19:05 10/10/18 19:05 Doctor's Discharge - Discharge Referrals: WERNER DRAPER MD [Primary Care Provider] - Follow up as needed
[2018-10-10] MEDS ORDERED: ONDANSETRON HCL INJ/PF 4 MG/2 ML SDV IV ONE (19:27)
[2018-10-10] MEDS ORDERED: MORPHINE SULFATE 10 MG/ML INJ IV ONE (19:27)
[2018-10-10] MEDS ORDERED: NORMAL SALINE 1000 ML 1,000 ML IV PRN (19:28)
[2018-10-10 20:30] LABS: ABSOLUTE LYMPHOCYTES (AUTO) 1.1 10^3/uL (0.5-4.7); ABSOLUTE MONOCYTES (AUTO) 0.5 10^3/uL (0.1-1.4); ABSOLUTE NEUT (AUTO) 8.4 10^3/uL (1.7-8.2); BASOPHILS % (AUTO) 0.3 % (0-2); EOSINOPHILS % (AUTO) 0.5 % (0-6); HEMATOCRIT 41.3 % (36.0-47.0); LYMPHOCYTES % (AUTO) 10.8 % (13-45); MEAN CORPUSCULAR HEMOGLOBIN 29.7 pg (27.0-33.4); MEAN CORPUSCULAR HGB CONC 33.8 g/dL (32.0-36.0); MEAN CORPUSCULAR VOLUME 88 fl (80-97); MONOCYTES % (AUTO) 4.6 % (3-13); RED BLOOD COUNT 4.72 10^6/uL (3.72-5.28); RED CELL DISTRIBUTION WIDTH 14.9 % (11.5-14.0); SEGMENTED NEUTROPHILS % (AUTO) 83.8 % (42-78); TOTAL CELLS COUNTED % (AUTO) 100 %
[2018-10-10 20:46] LABS: PLATELET COUNT 352 10^3/uL (150-450)
[2018-10-10 20:47] LABS: ALANINE AMINOTRANSFERASE 36 U/L (9-52); ALBUMIN 4.3 g/dL (3.5-5.0); ALKALINE PHOSPHATASE 93 U/L (38-126); ANION GAP 10 (5-19); ASPARTATE AMINO TRANSFERASE 50 U/L (14-36); BILIRUBIN,DIRECT 0.3 mg/dL (0.0-0.4); BILIRUBIN,TOTAL 0.7 mg/dL (0.2-1.3); BLOOD UREA NITROGEN 12 mg/dL (7-20); CARBON DIOXIDE 25 mmol/L (22-30); CHLORIDE 103 mmol/L (98-107); GLUCOSE 149 mg/dL (75-110); LIPASE 36.3 U/L (23-300); POTASSIUM 4.5 mmol/L (3.6-5.0); SODIUM 137.6 mmol/L (137-145); TOTAL PROTEIN 7.9 g/dL (6.3-8.2)
[2018-10-10 20:59] LABS: APPEARANCE,URINE SLIGHTLY-CLOUDY; BILIRUBIN,URINE NEGATIVE (NEGATIVE); COLOR,URINE YELLOW; GLUCOSE, URINE NEGATIVE (NEGATIVE); KETONES,URINE TRACE mg/dL (NEGATIVE); LEUKOCYTE ESTERASE,URINE NEGATIVE (NEGATIVE); NITRITE,URINE NEGATIVE (NEGATIVE); PROTEIN,URINE NEGATIVE (NEGATIVE); URINE SPECIFIC GRAVITY 1.021; UROBILINOGEN,URINE NEGATIVE mg/dL (<2.0)
[2018-10-10] MEDS ORDERED: NORMAL SALINE 1000 ML 1,000 ML IV ONE (21:06)
--- NOTE | 2018-10-10 21:55 | ER Document Report ---
Entered by ALISON MAGUIRE SCRIBE 10/10/[id number] Acting as scribe for:GEN ROBLERO MD ED General - General Chief Complaint: Vomiting/Diarrhea Stated Complaint: DIARRHEA Time Seen by Provider: 10/10/18 18:59 Primary Care Provider: WERNER DRAPER MD [NO LOCAL MD] - Follow up as needed Mode of Arrival: Ambulatory Notes: Patient is a 58-year-old female presenting to the emergency department complaining of diarrhea with associated nausea. Patient states that she thought that it was her metformin, which she has been on for 3 years. Patient states that she has been having upper abdominal pain on the left side. Patient states that her last bowel movement was at 1900 upon arriving at the emergency department. Patient denies having any vomiting or fever. TRAVEL OUTSIDE OF THE [place] IN LAST 30 DAYS: No - Related Data Allergies/Adverse Reactions: No Known Allergies Allergy (Verified 10/10/18 18:47) Past Medical History - General Information source: Patient - Social History Smoking Status: Never Smoker Cigarette use (# per day): No Chew tobacco use (# tins/day): No Frequency of alcohol use: None Drug Abuse: None Family History: Hypertension Patient has suicidal ideation: No Patient has homicidal ideation: No - Past Medical History Cardiac Medical History: Reports: Hx Hypertension Neurological Medical History: Reports: Hx Migraine Endocrine Medical History: Reports: Hx Diabetes Mellitus Type 2 Musculoskeletal Medical History: Reports Hx Arthritis, Reports Hx Musculoskeletal Deformity, Reports Hx Musculoskeletal Trauma Psychiatric Medical History: Reports: Hx Depression Traumatic Medical History: Reports: Hx Fractures - L3L4 Past Surgical History: Reports: Hx Section, Hx Cholecystectomy - Immunizations Immunizations up to date: Yes Hx Diphtheria, Pertussis, Tetanus Vaccination: Yes Review of Systems - Review of Systems Constitutional: No symptoms reported. denies: Fever EENT: No symptoms reported Cardiovascular: No symptoms reported Respiratory: No symptoms reported Gastrointestinal: See HPI, Diarrhea, Nausea. denies: Vomiting Genitourinary: No symptoms reported Female Genitourinary: No symptoms reported Musculoskeletal: No symptoms reported Skin: No symptoms reported Hematologic/Lymphatic: No symptoms reported Neurological/Psychological: No symptoms reported -: Yes All other systems reviewed and negative Physical Exam - Vital signs Vitals: Temp Pulse Resp BP Pulse Ox 99.1 F 83 20 150/86 H 97 10/10/18 19:05 10/10/18 19:05 10/10/18 19:05 10/10/18 19:05 10/10/18 19:05 - Notes Notes: Physical Exam: General: Alert, obese. HEENT: Normocephalic. Atraumatic. PERRL. Extraocular movements intact. Oropharynx clear. Neck: Supple. Non-tender. Respiratory: No respiratory distress. Clear and equal breath sounds bilaterally. Cardiovascular: Regular rate and rhythm. Abdominal: Left upper quadrant tenderness to palpation. No distension. Normal Bowel Sounds. Back: Non-tender. No deformity or step off. Extremities: Moves all four extremities. Upper extremities: Normal inspection. Normal ROM. Lower extremities: Normal inspection. No edema. Normal ROM. Neurological: Normal cognition. AAOx4. Normal speech. Psychological: Normal affect. Normal Mood. Skin: Warm. Dry. Normal color. Course - Re-evaluation Re-evalutation: 10/10/18 23:[address] scan is unremarkable. The blood work shows a very slight elevation in the white blood cell count and the absolute neutrophil count. The patient has not had any diarrhea since the episode she had right after triage about 7 PM. Advised the patient that she should still get the stool specimen as an outpatie nt and bring it to the lab. Since she does have a little bit of a white count elevation, and I cannot confirm that this is not an infectious diarrhea, will cover her with Cipro while we wait for a stool specimen and culture results. - Vital Signs Vital signs: Temp Pulse Resp BP Pulse Ox 99.1 F 83 20 150/86 H 97 10/10/18 19:05 10/10/18 19:05 10/10/18 19:05 10/10/18 19:05 10/10/18 19:05 - Laboratory Result Diagrams: 10/10/18 20:00 10/10/18 20:00 Laboratory results interpreted by me: 10/10/18 10/10/18 10/10/18 19:40 20:00 20:00 RDW 14.9 H Seg Neutrophils % 83.8 H Lymphocytes % 10.8 L Absolute Neutrophils 8.4 H Glucose 149 H AST 50 H Urine Ketones TRACE H Urine Blood MODERATE H - Diagnostic Test Radiology reviewed: Image reviewed, Reports reviewed - CT scan of the abdomen pelvis with IV contrast is unremarkable. Discharge - Discharge Clinical Impression: Diarrhea Qualifiers: Diarrhea type: unspecified type Qualified Code(s): R19.7 - Diarrhea, u nspecified Abdominal pain Qualifiers: Abdominal location: left upper quadrant Qualified Code(s): R10.12 - Left upper quadrant pain Condition: Stable Disposition: HOME, SELF-CARE Additional Instructions: Abdominal Pain There are many causes of abdominal pain. Pain can mean a serious problem requiring surgery (such as appendicitis). It can also be an innocent problem that goes away on its own (such as a viral infection). Often, time must pass to determine the cause of pain. The physician does not feel that hospitalization is necessary, at present. Things may change within the next 24 hours. Call the doctor or come back for re-examination if any problems occur, such as: (1) Pain that becomes more severe, steady, or becomes concentrated in one specific area. Also, pain that is more severe with movement or coughing. (2) Vomiting that persists or becomes more frequent. (3) Blood in the vomitus, urine, or bowel movements. Blood in the stool may have a tarry or black appearance. (4) Shaking chills or fever greater than 100 degrees F. (5) The abdomen becomes more distended or swollen. (6) Bowel movements cease. (7) Failure to improve as expected. Diarrhea Diarrhea means frequent, watery stools. There are many causes. Any problem that keeps the intestinal tract from absorbing water from the stool can lead to diarrhea. A sudden new diarrhea problem is usually caused by a virus, food sensitivity, toxic bacteria, or drugs. In this case, we expect the problem to go away soon. Testing is done only if you seem seriously ill from the diarrhea. If you have chronic diarrhea, or diarrhea that keeps coming back, we need to find out why. Chronic diarrhea can be due to inflammation of the bowels such as Crohn's disease or ulcerative colitis, food sensitivity such as intolerance to lactose or wheat protein, irritable bowel syndrome, and other problems. If your diarrhea is a significant problem but it's not clear why you have it, we'll refer you to a specialist for further testing. During an episode of diarrhea, drink small amounts (two to six ounces) of clear liquids (soft drinks, sport drinks, herb teas, broth, etc). Take fluids frequently to prevent dehydration. It's usually not a problem to take mild anti- diarrhea medication such as Kaopectate or Pepto-Bismol. As the diarrhea eases, advance to small amounts of bland food (mashed potato, toast) for 24 hours. Call the physician if blood appears in your vomit or stool, if vomiting lasts longer than 24 hours, if the abdominal pain worsens or becomes localized to one area, if you develop high fever, or if you become lightheaded and weak. Take the antibiotics as prescribed. Drink plenty of cool clear liquids. Take Tylenol for pain as needed. Collect a stool specimen and bring it to the outpatient lab. Follow-up with your doctor if not improving. RETURN TO THE EMERGENCY ROOM IF ANY NEW OR WORSENING SYMPTOMS. Prescriptions: Ciprofloxacin HCl [Cipro 500 mg Tablet] 500 mg PO BID #10 tablet Forms: Follow-Up Laboratory Testing Referrals: WERNER DRAPER MD [NO LOCAL MD] - Follow up as needed Scribe Attestation: 10/10/18 22:44 I personally performed the services described in the documentation, reviewed and edited the documentation which was dictated to the scribe in my presence, and it accurately records my words and actions. I personally performed the services described in the documentation, reviewed and edited the documentation which was dictated to the scribe in my presence, and it accurately records my words and actions.
--- NOTE | 2018-10-10 23:32 | RADIOLOGY REPORT (SQ) ---
CLINICAL HISTORY: LUQ abd pain, vomiting/diarrhea COMPARISON: None. TECHNIQUE: CT ABDOMEN PELVIS WITH IV CONTRAST on 10/10/2018 7:20 PM CDT This exam was performed according to our departmental dose-optimization program, which includes automated exposure control, adjustment of the mA and/or kV according to patient size and/or use of iterative reconstruction technique. FINDINGS: Lower lungs are clear. Abdomen: The liver is mildly enlarged and fatty in attenuation. There is no biliary dilatation. Cholecystectomy was performed. The pancreas and spleen are normal in appearance. The adrenal glands and kidneys are unremarkable. Abdominal aorta is normal in course and caliber without aneurysm. There is no free air. There is no retroperitoneal adenopathy. Pelvis: There is no bowel obstruction. Urinary bladder is unremarkable. There is no free fluid. Uterus is normal in size. Appendix is normal. Skeleton: There are no acute osseous findings. No suspicious bony lesions. IMPRESSION: No acute inflammatory process. No renal or ureteral calculi.
[2018-10-10] MEDS ORDERED: CIPROFLOXACIN HCL 500 MG TABLET PO ONE (23:45)
--- NOTE | 2018-10-12 11:29 | ER Document Report ---
Doctor's Note Notes: 10/12/18 11:27 I was approached by RN Anai Huber in regards to this patient. Evidently she had been seen by Dr. Diaz, and a stool sample was ordered. She presented to the emergency department to submit it. I reviewed this patient's chart. Unfortunately, when going into the chart, I inadvertently signed up for this p atient. I did not see, examine, or evaluate the patient in any way. In short, I was getting into the chart to see what tests were appropriate. Dr. Noriega had ordered outpatient laboratory testing on her stool. I did print this. Unfortunately again, this came in my name, but I did not see, interviewed, examined the patient in any way. I did sign the form and handed to nurse Cecile so she could give it to the patient.
== END 2018-10-11 | disposition home or self-care (01) ==
LOC: ER 18:47
DX: R19.7 Diarrhea, unspecified (principal); R10.12 Left upper quadrant pain; R11.2 Nausea with vomiting, unspecified; I10 Essential (primary) hypertension; E11.9 Type 2 diabetes mellitus without complications
CPT/HCPCS: 99284; 96374; 96375; 36415; 87045; 87205; 83690; 85025; 80053; 81001; 87493; 74177; J2270; J2405; J7030; 96361

== ENCOUNTER → 2019-11-19 | Outpatient (CLI) | payer MEDICARE, OTHER ==
[2019-11-19 10:58] LABS: HEMATOCRIT 40.4 % (36.0-47.0); HEMOGLOBIN 13.6 g/dL (12.0-15.5); MEAN CORPUSCULAR HEMOGLOBIN 30.1 pg (27.0-33.4); MEAN CORPUSCULAR HGB CONC 33.7 g/dL (32.0-36.0); MEAN CORPUSCULAR VOLUME 89 fl (80-97); PLATELET COUNT 374 10^3/uL (150-450); RED BLOOD COUNT 4.53 10^6/uL (3.72-5.28); RED CELL DISTRIBUTION WIDTH 14.3 % (11.5-14.0); WHITE BLOOD COUNT 8.1 10^3/uL (4.0-10.5)
[2019-11-19 11:05] LABS: APPEARANCE,URINE CLEAR; BILIRUBIN,URINE NEGATIVE (NEGATIVE); COLOR,URINE STRAW; GLUCOSE, URINE >=500 mg/dL (NEGATIVE); KETONES,URINE NEGATIVE (NEGATIVE); LEUKOCYTE ESTERASE,URINE NEGATIVE (NEGATIVE); NITRITE,URINE NEGATIVE (NEGATIVE); PROTEIN,URINE NEGATIVE (NEGATIVE); URINE SPECIFIC GRAVITY 1.023; UROBILINOGEN,URINE NEGATIVE mg/dL (<2.0)
[2019-11-19 11:18] LABS: ANION GAP 10 (5-19); BLOOD UREA NITROGEN 17 mg/dL (7-20); CALCIUM 9.3 mg/dL (8.4-10.2); CARBON DIOXIDE 31 mmol/L (22-30); CHLORIDE 93 mmol/L (98-107); GLUCOSE 133 mg/dL (75-110); POTASSIUM 4.2 mmol/L (3.6-5.0)
[2019-11-19 11:26] VITALS: BP 123/74
--- NOTE | 2019-11-19 13:16 | RADIOLOGY REPORT (SQ) ---
EXAM DESCRIPTION: CHEST PA/LATERAL IMAGES COMPLETED DATE/TIME: 11/19/2019 10:26 am REASON FOR STUDY: PRE-OP COMPARISON: 11/08/2017 EXAM PARAMETERS: NUMBER OF VIEWS: two views TECHNIQUE: Digital Frontal and Lateral radiographic views of the chest acquired. RADIATION DOSE: NA LIMITATIONS: none FINDINGS: LUNGS AND PLEURA: No opacities, masses or pneumothorax. No pleural effusion. MEDIASTINUM AND HILAR STRUCTURES: No masses or contour abnormalities. HEART AND VASCULAR STRUCTURES: Heart normal size. No evidence for failure. BONES: No acute findings. HARDWARE: None in the chest. OTHER: No other significant finding. IMPRESSION: NO SIGNIFICANT RADIOGRAPHIC FINDING IN THE CHEST. TECHNICAL DOCUMENTATION: JOB ID: [id number] 2010 [employer]- All Rights Reserved Reading location - IP/workstation name: [email or web address]
--- NOTE | 2019-11-19 19:26 | EKG REPORT ---
SEVERITY:- ABNORMAL ECG - SINUS RHYTHM PROBABLE LEFT VENTRICULAR HYPERTROPHY : Confirmed by: Anil Irving MD 19-Nov-2019 19:26:27
== END ==
LOC: OD 09:09 → EDSTATUS 11-22 07:15
PROVIDERS: ATTEND Specialist
DX: Z03.818 Encounter for observation for suspected exposure to other biological agents ruled out (principal)
CPT/HCPCS: 93005; 36415; 85027; 80048; 81001; 71046; 93010; U0003; C9803; 87635

== ENCOUNTER 2019-11-30 16:14 | Emergency (ER) | payer MEDICARE ==
--- NOTE | 2019-11-30 17:12 | RADIOLOGY REPORT (SQ) ---
EXAM DESCRIPTION: CHEST SINGLE VIEW IMAGES COMPLETED DATE/TIME: 11/30/2019 4:53 pm REASON FOR STUDY: bed 6 difficulty breathing COMPARISON: 11/19/2019 TECHNIQUE: Single frontal radiographic view of the chest acquired. NUMBER OF VIEWS: One view. LIMITATIONS: None. FINDINGS: LUNGS AND PLEURA: No pneumothorax. No consolidation or pleural effusion. Similar mild lef t basilar scarring. MEDIASTINUM AND HILAR STRUCTURES: Stable. HEART AND VASCULAR STRUCTURES: Stable. BONES: No acute findings. HARDWARE: None in the chest. OTHER: No other significant finding. IMPRESSION: NO ACUTE FINDINGS. TECHNICAL DOCUMENTATION: JOB ID: [id number] [place]-72 2010 [employer]- All Rights Reserved Reading location - IP/workstation name: [email or web address]
[2019-11-30 17:28] LABS: ABSOLUTE EOSINOPHILS # (AUTO) 0.2 10^3/uL (0.0-0.6); ABSOLUTE LYMPHOCYTES (AUTO) 2.2 10^3/uL (0.5-4.7); ABSOLUTE MONOCYTES (AUTO) 0.6 10^3/uL (0.1-1.4); ABSOLUTE NEUT (AUTO) 7.8 10^3/uL (1.7-8.2); BASOPHILS % (AUTO) 0.4 % (0-2); EOSINOPHILS % (AUTO) 1.4 % (0-6); HEMATOCRIT 41.8 % (36.0-47.0); HEMOGLOBIN 14.1 g/dL (12.0-15.5); LYMPHOCYTES % (AUTO) 20.2 % (13-45); MEAN CORPUSCULAR HGB CONC 33.8 g/dL (32.0-36.0); MEAN CORPUSCULAR VOLUME 89 fl (80-97); MONOCYTES % (AUTO) 5.5 % (3-13); PLATELET COUNT 432 10^3/uL (150-450); RED CELL DISTRIBUTION WIDTH 14.6 % (11.5-14.0); SEGMENTED NEUTROPHILS % (AUTO) 72.5 % (42-78); TOTAL CELLS COUNTED % (AUTO) 100 %; WHITE BLOOD COUNT 10.7 10^3/uL (4.0-10.5)
[2019-11-30] MEDS ORDERED: NORMAL SALINE 1000 ML 1,000 ML IV ONE (17:32)
--- NOTE | 2019-11-30 17:38 | ER Document Report ---
ED General - General Chief Complaint: Headache <24 hrs old Stated Complaint: SOB/LOSS OF TASTE/NAUSEA Time Seen by Provider: 11/30/19 17:03 Primary Care Provider: MADDI LUCIA MD [Primary Care Provider] - Follow up as needed Notes: This 59-year-old female presents to the emergency department with a history of l oss of taste and decreased appetite with associated nausea and a headache. Concerned that she may be anemic, she has a history of heavy menstrual bleeding. Diagnosed with a uterine polyp, however, the surgery has been delayed so that she can get cardiac clearance. She has a history of type 2 diabetes mellitus, hypertension and was tested for coronavirus approximately 11 days ago. That test was negative. She notes increased fatigue and sleepiness. She is concerned that her symptoms may be related to medication that she is taking to help control the uterine bleeding or possibly the coronavirus. TRAVEL OUTSIDE OF THE [place] IN LAST 30 DAYS: No - Related Data Allergies/Adverse Reactions: No Known Allergies Allergy (Verified 10/10/18 18:47) Past Medical History - Social History Smoking Status: Former Smoker Frequency of alcohol use: None Drug Abuse: None Family History: Hypertension - Past Medical History Cardiac Medical History: Reports: Hx Hypertension Denies: Hx Coronary Artery Disease, Hx Heart Attack Pulmonary Medical History: Denies: Hx Asthma, Hx Bronchitis, Hx COPD, Hx Pneumonia, Hx Tuberculosis Neurological Medical History: Reports: Hx Migraine. Denies: Hx Cerebrovascular Accident, Hx Seizures Endocrine Medical History: Reports: Hx Diabetes Mellitus Type 2 Renal/ Medical History: Denies: Hx Peritoneal Dialysis Musculoskeletal Medical History: Reports Hx Arthritis - HUSSAIN HANDS/LEGS, Reports Hx Musculoskeletal Deformity, Reports Hx Musculoskeletal Trauma Psychiatric Medical History: Reports: Hx Depression Traumatic Medical History: Reports: Hx Fractures - L3L4 Past Surgical History: Reports: Hx Section, Hx Cholecystectomy, Hx Tubal Ligation - Immunizations Immunizations up to date: Yes Hx Diphtheria, Pertussis, Tetanus Vaccination: Yes Review of Systems - Review of Systems Notes: Constitutional: Increased fatigue, loss of appetite. HENT: + Loss of taste Eyes: Negative for visual changes. Cardiovascular: + Chest pain. Respiratory: Negative for shortness of breath. Gastrointestinal: + Nausea Genitourinary: + Heavy vaginal bleeding Musculoskeletal: Negative for back pain. Skin: Negative for rash. Neurological: Negative for headaches, weakness or numbness. 10 point ROS negative except as marked above and in HPI. Physical Exam - Vital signs Vitals: Temp Pulse Resp BP Pulse Ox 99.2 F 109 H 20 130/77 H 99 11/30/19 16:26 11/30/19 16:26 11/30/19 16:26 11/30/19 16:26 11/30/19 16:26 - Notes Notes: PHYSICAL EXAMINATION: Physical Exam: General: Well-nourished well-developed 59-year-old female in no acute distress HEENT: NC/AT, pupils equal round and reactive to light, MM moist,nares clear, oropharynx clear, airway patent Neck: supple, no adenopathy, no masses. Good range of motion Lungs: clear, no wheezing, no rales no rhonchi CVS: Regular rate and rhythm no murmur gallop or rub Abdomen: Soft, active, nontender, no masses, no hepatosplenomegaly Ext: No edema, clubbing or cyanosis. Neuro: Alert and responsive, moving all 4 extremities on command, cranial nerves intact, no focal findings Skin: Intact no open lesions, no rash Course - Re-evaluation Re-evalutation: 12/01/19 00:55 Patient is was continued to do well in the emergency department and resting quietly with no exaggerated symptoms. Your lab tests, EKG, and x-rays are essentially negative. Discussed these findings with the patient and explained that we will do a coronavirus test here in the emergency room today. - Vital Signs Vital signs: Temp Pulse Resp BP Pulse Ox 98.1 F 109 H 20 119/54 L 100 11/30/19 20:59 11/30/19 16:26 11/30/19 20:59 11/30/19 20:59 11/30/19 20:59 - Laboratory Result Diagrams: 11/30/19 16:54 11/30/19 16:54 Laboratory results interpreted by me: 11/30/19 11/30/19 11/30/19 16:54 16:54 17:00 WBC 10.7 H RDW 14.6 H Sodium 135.7 L Chloride 97 L Glucose 135 H Urine Glucose (UA) >=500 H Urine Ketones TRACE H Urine Blood MODERATE H - Diagnostic Test Radiology reviewed: Image reviewed, Reports reviewed Radiology results interpreted by me: 12/01/19 00:59 Chest x-ray: No acute cardiopulmonary findings. - EKG Interpretation by [place] Rate: Normal - EKG interpreted by Dr. Greenfield: Normal sinus rhythm, rate 103 QT interval normal, normal axis, borderline T wave abnormality in the inferior leads. No acute ST or T wave abnormalities, no ischemic findings, when compared to previous EC19-Nov-2019 09:57:55 - Abnormal Confirmed, no acute findings. Discharge - Discharge Clinical Impression: Suspected 2019 novel coronavirus infection Condition: Good Disposition: HOME, SELF-CARE Instructions: COVID-19 Guidance for Persons Under Investigation Additional Instructions: You were seen with fever and upper respiratory symptoms.Testing chest x-ray is clear. Given the pandemic and coronavirus concerns, your were made a person of interest and a swab was collected and will be sent for COVID-19 evaluation. You will need to self quarantine until you get the results. . Please return to the hospital if her symptoms are worsening or development of shortness of breath. Referrals: MADDI LUCIA MD [Primary Care Provider] - Follow up as needed
[2019-11-30 17:46] LABS: ALBUMIN 4.2 g/dL (3.5-5.0); ALKALINE PHOSPHATASE 85 U/L (38-126); ANION GAP 12 (5-19); ASPARTATE AMINO TRANSFERASE 28 U/L (14-36); BILIRUBIN,DIRECT 0.3 mg/dL (0.0-0.4); BILIRUBIN,TOTAL 0.8 mg/dL (0.2-1.3); BLOOD UREA NITROGEN 13 mg/dL (7-20); CALCIUM 9.7 mg/dL (8.4-10.2); CARBON DIOXIDE 27 mmol/L (22-30); CHLORIDE 97 mmol/L (98-107); GLUCOSE 135 mg/dL (75-110); POTASSIUM 4.1 mmol/L (3.6-5.0); TOTAL PROTEIN 8.2 g/dL (6.3-8.2)
[2019-11-30 17:48] LABS: APPEARANCE,URINE SLIGHTLY-CLOUDY; BILIRUBIN,URINE NEGATIVE (NEGATIVE); COLOR,URINE YELLOW; GLUCOSE, URINE >=500 mg/dL (NEGATIVE); KETONES,URINE TRACE mg/dL (NEGATIVE); LEUKOCYTE ESTERASE,URINE NEGATIVE (NEGATIVE); NITRITE,URINE NEGATIVE (NEGATIVE); PROTEIN,URINE NEGATIVE (NEGATIVE); URINE SPECIFIC GRAVITY 1.027; UROBILINOGEN,URINE NEGATIVE mg/dL (<2.0)
[2019-11-30 21:05] VITALS: BP 119/54
[2019-11-30] MEDS ORDERED: ONDANSETRON ODT 4 MG TAB (6 TAB/ER DISP) PO PRN (21:47)
--- NOTE | 2019-12-01 20:20 | EKG REPORT ---
SEVERITY:- BORDERLINE ECG - SINUS TACHYCARDIA BORDERLINE T ABNORMALITIES, INFERIOR LEADS : Confirmed by: Nataliya Martel 01-Dec-2019 20:19:22
== END 2019-11-30 21:57 | disposition home or self-care (01) ==
LOC: ER 16:14
DX: R43.9 Unspecified disturbances of smell and taste (principal); R63.0 Anorexia; R11.0 Nausea; R51 Headache; E11.9 Type 2 diabetes mellitus without complications; I10 Essential (primary) hypertension; R53.83 Other fatigue; N92.0 Excessive and frequent menstruation with regular cycle; Z79.899 Other long term (current) drug therapy; Z87.891 Personal history of nicotine dependence; Z20.828 Contact with and (suspected) exposure to other viral communicable diseases
CPT/HCPCS: 93005; 99285; 96360; 96361; 36415; 87040; 85025; 80053; 81001; 84484; 71045; 93010; U0003; J7030; A9270; C9803; 87635

== ENCOUNTER 2020-04-16 14:48 | Emergency (ER) | payer OTHER, MEDICARE ==
[2020-04-16 14:56] VITALS: BP 114/82
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
== END 2020-04-16 16:40 | disposition home or self-care (01) ==
LOC: ER 14:48
DX: G89.29 Other chronic pain (principal); M25.512 Pain in left shoulder; V89.2XXA Person injured in unspecified motor-vehicle accident, traffic, initial encounter; I10 Essential (primary) hypertension; E11.9 Type 2 diabetes mellitus without complications
CPT/HCPCS: 99282